=== PATIENT | male | born 1975 ===

== ENCOUNTER 2019-10-31 16:20 | Emergency (ER) | payer OTHER ==
[~2019-10-31] VITALS: Ht 175.3 cm; Wt 102.0 kg
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
--- NOTE | 2019-10-31 17:58 | NUR ---
PT AMBULATED TO BATHROOM WITH DR. SHELTON.
[2019-10-31] MEDS ORDERED: HYDROcodone/APAP 5/325 TABLET ONE (18:09)
[2019-10-31] MEDS ORDERED: HYDROcodone/APAP 5/325 TABLET PO ONE (18:30)
--- NOTE | 2019-10-31 18:44 | NUR ---
PT OK FOR D/C PER ERMD. PT AMBULATING WELL UPON D/C.
[2019-10-31 18:45] VITALS: BP 139/87
--- NOTE | 2019-10-31 18:56 | NUR ---
REPORT FROM GABRIEL COON. PT CARE RESPONSIBILITIES ASSUMED.
== END 2019-10-31 19:06 | disposition home or self-care (01) ==
LOC: ED 18:57
DX: S16.1XXA Strain of muscle, fascia and tendon at neck level, initial encounter (principal); M54.14 Radiculopathy, thoracic region; R20.2 Paresthesia of skin; X58.XXXA Exposure to other specified factors, initial encounter; Y93.89 Activity, other specified; Y92.89 Other specified places as the place of occurrence of the external cause; Y99.8 Other external cause status
CPT/HCPCS: 72050; 72072; 99284

== ENCOUNTER 2019-11-20 03:23 | Emergency (ER) | payer MEDICAID, OTHER ==
[~2019-11-20] VITALS: Ht 175.3 cm; Wt 104.0 kg
[2019-11-20 03:28] VITALS: BP 152/117
[2019-11-20] MEDS ORDERED: MORPHINE SULFATE 4 MG/ML, 1ML IVPush PRN (03:30)
[2019-11-20] MEDS ORDERED: ONDANSETRON 2MG/ML, 2ML IVPush ONE (03:30)
[2019-11-20] MEDS ORDERED: SODIUM CHLORIDE FLUSH 10ML SYR IVF ONE (03:30)
[2019-11-20] MEDS ORDERED: MORPHINE SULFATE 4 MG/ML, 1ML ONE (03:41)
[2019-11-20] MEDS ORDERED: ONDANSETRON 2MG/ML, 2ML ONE (03:41)
[2019-11-20 03:55] LABS: BASOPHILS # (AUTO) 0.06 x10^3/uL (0-0.1); BASOPHILS % (AUTO) 1 % (0-1); EOSINOPHILS # (AUTO) 0.19 x10^3/uL (0-0.4); EOSINOPHILS % (AUTO) 3 % (1-7); LYMPHOCYTES # (AUTO) 3.22 x10^3/uL (1-3.4); LYMPHOCYTES % (AUTO) 43 % (22-44); MD NO; MEAN CORPUSCULAR HEMOGLOBIN 32.3 pg (27.5-34.5); MEAN CORPUSCULAR HGB CONC 33.6 g/dL (33.2-36.2); MEAN CORPUSCULAR VOLUME 95.8 fL (81-97); MEAN PLATELET VOLUME 7.9 fL (7.4-10.4); MONOCYTES # (AUTO) 0.51 x10^3/uL (0.2-0.8); MONOCYTES % (AUTO) 7 % (2-9); NEUTROPHILS # (AUTO) 3.53 x10^3/uL (1.8-6.8); NEUTROPHILS % (AUTO) 47 % (42-75); PLATELET COUNT 124 x10^3/uL (130-400); RED BLOOD COUNT 4.83 x10^6/uL (4.38-5.82); RED CELL DISTRIBUTION WIDTH 14.5 % (9.4-14.8)
[2019-11-20 04:05] LABS: ALANINE AMINOTRANSFERASE 103 U/L (12-78); ALBUMIN 3.7 g/dL (3.4-5.0); ANION GAP 8 mmol/L (5-15); CALCIUM 8.2 mg/dL (8.5-10.1); CHLORIDE 112 mmol/L (98-107); CREATININE 0.88 mg/dL (0.7-1.3)
[2019-11-20 04:09] LABS: ALKALINE PHOSPHATASE 84 U/L (45-117); TOTAL PROTEIN 7.7 g/dL (6.4-8.2); TROPONIN I < 0.015 ng/mL (0.000-0.045)
[2019-11-20 04:15] LABS: AMPHETAMINE SCREEN, URINE Negative (Negative); BARBITURATE SCREEN, URINE Negative (Negative); BENZODIAZEPINE SCREEN, URINE Negative (Negative); CANNABINOID SCREEN, URINE Negative (Negative); COCAINE SCREEN, URINE Negative (Negative); METHADONE SCREEN, URINE Negative (Negative); OPIATE SCREEN, URINE Negative (Negative)
== END 2019-11-20 05:29 | disposition home or self-care (01) ==
LOC: ED 03:53
DX: R42 Dizziness and giddiness (principal); F10.229 Alcohol dependence with intoxication, unspecified; R94.5 Abnormal results of liver function studies; R51 Headache; R53.1 Weakness; Y90.9 Presence of alcohol in blood, level not specified
CPT/HCPCS: 36415; 70450; 80053; 80307; 82140; 84484; 85025; 93005; 96374; 99285; J2270

== ENCOUNTER 2019-12-27 07:44 | Emergency (ER) | payer MEDICAID ==
[~2019-12-27] VITALS: Ht 175.3 cm; Wt 105.2 kg
--- NOTE | 2019-12-27 07:51 | NUR ---
PARTITION NOTCHER: C-COLLAR PLACED
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
--- NOTE | 2019-12-27 08:54 | NUR ---
BEDSIDE REPORT GIVEN TO FAUSTINA RIOS.
[2019-12-27 10:06] VITALS: BP 137/77
[2019-12-27 10:48] LABS: ALANINE AMINOTRANSFERASE 82 U/L (12-78); ALBUMIN 3.7 g/dL (3.4-5.0); ANION GAP 8 mmol/L (5-15); CALCIUM 8.3 mg/dL (8.5-10.1); CHLORIDE 111 mmol/L (98-107); CREATININE 0.66 mg/dL (0.7-1.3)
[2019-12-27 10:50] LABS: ALKALINE PHOSPHATASE 75 U/L (45-117); BILIRUBIN,TOTAL 1.1 mg/dL (0.2-1.0); TOTAL PROTEIN 7.7 g/dL (6.4-8.2)
[2019-12-27 11:08] LABS: BASOPHILS # (AUTO) 0.03 x10^3/uL (0-0.1); BASOPHILS % (AUTO) 1 % (0-1); EOSINOPHILS # (AUTO) 0.08 x10^3/uL (0-0.4); EOSINOPHILS % (AUTO) 2 % (1-7); LYMPHOCYTES # (AUTO) 2.26 x10^3/uL (1-3.4); LYMPHOCYTES % (AUTO) 45 % (22-44); MD SCAN; MEAN CORPUSCULAR HGB CONC 33.3 g/dL (33.2-36.2); MEAN CORPUSCULAR VOLUME 96.2 fL (81-97); MEAN PLATELET VOLUME 7.2 fL (7.4-10.4); MONOCYTES # (AUTO) 0.47 x10^3/uL (0.2-0.8); MONOCYTES % (AUTO) 9 % (2-9); NEUTROPHILS # (AUTO) 2.23 x10^3/uL (1.8-6.8); NEUTROPHILS % (AUTO) 44 % (42-75); PLATELET COUNT 85 x10^3/uL (130-400); RED CELL DISTRIBUTION WIDTH 15.2 % (9.4-14.8)
[2019-12-27 11:21] LABS: MICROSCOPIC NOT IND
== END 2019-12-27 12:04 | disposition home or self-care (01) ==
LOC: ED 08:54
DX: S16.1XXA Strain of muscle, fascia and tendon at neck level, initial encounter (principal); S39.012A Strain of muscle, fascia and tendon of lower back, initial encounter; S20.212A Contusion of left front wall of thorax, initial encounter; S80.211A Abrasion, right knee, initial encounter; S80.811A Abrasion, right lower leg, initial encounter; I10 Essential (primary) hypertension; V29.9XXA Motorcycle rider (driver) (passenger) injured in unspecified traffic accident, initial encounter; Y93.89 Activity, other specified; Y92.488 Other paved roadways as the place of occurrence of the external cause; Y99.8 Other external cause status
CPT/HCPCS: 29505; 36415; 70450; 72110; 72125; 80053; 81003; 85025; 93005; 99285

== ENCOUNTER 2020-02-15 09:55 | Day surgery (SDC) | payer MEDICAID ==
[~2020-02-15] VITALS: Ht 175.3 cm; Wt 108.1 kg
[~2020-02-15 09:55] MED LIST: LIDOCAINE/PF 1%-EPI 1:200K, 30 ML ONE; ROPIvacaine/PF 0.5%, 30 ML ONE
[2020-02-15] MEDS ORDERED: CHLORHEXIDINE 15 ML UDC MM STA (10:17)
[2020-02-15] MEDS ORDERED: thiamine (10:24)
[2020-02-15] MEDS ORDERED: hydroxyzine (10:24)
[2020-02-15] MEDS ORDERED: escitalopram (10:24)
[2020-02-15] MEDS ORDERED: lisinopril (10:24)
[2020-02-15] MEDS ORDERED: LACTATED RINGERS 1,000 ML IV ONE (10:27)
[2020-02-15 10:42] VITALS: BP 160/90
[2020-02-15] MEDS ORDERED: MIDAZOLAM 1 MG/ML, 2ML ONE (10:54)
[2020-02-15] MEDS ORDERED: FENTANYL PF 100 MCG/2ML ONE ×2 (10:54→12:35)
[2020-02-15 10:59] LABS: ALBUMIN 3.7 g/dL (3.4-5.0); ANION GAP 8 mmol/L (5-15); CALCIUM 8.8 mg/dL (8.5-10.1); CHLORIDE 115 mmol/L (98-107)
[2020-02-15] MEDS ORDERED: hydrALAzine 20 MG/ML, 1ML IV PRN (11:00)
[2020-02-15] MEDS ORDERED: MEPERIDINE/PF 25MG/0.5ML IVPush PRN (11:00)
[2020-02-15] MEDS ORDERED: FENTANYL PF 100 MCG/2ML IV PRN (11:00)
[2020-02-15] MEDS ORDERED: HYDROmorphone 1 MG/ML, 1ML INJ IVPush PRN (11:00)
[2020-02-15] MEDS ORDERED: PROMETHAZINE 25 MG/ML, 1ML IVPush PRN (11:00)
[2020-02-15] MEDS ORDERED: LORazepam 2 MG/ML, 1ML IVPush PRN (11:00)
[2020-02-15] MEDS ORDERED: ACETAMINOPHEN 325 MG TABLET PO PRN (11:00)
[2020-02-15 11:03] LABS: ALANINE AMINOTRANSFERASE 125 U/L (12-78); ALKALINE PHOSPHATASE 97 U/L (45-117); CREATININE 0.65 mg/dL (0.7-1.3); TOTAL PROTEIN 7.5 g/dL (6.4-8.2)
[2020-02-15] MEDS ORDERED: KETOROLAC 30 MG/1 ML ONE (11:35)
[2020-02-15] MEDS ORDERED: CEFAZOLIN 1,000 MG ONE (11:36)
[2020-02-15] MEDS ORDERED: ONDANSETRON 2MG/ML, 2ML ONE (11:36)
[2020-02-15] MEDS ORDERED: DEXAMETHASONE 4 MG/ML, 1ML ONE (11:36)
[2020-02-15] MEDS ORDERED: LIDOCAINE-MPF 2% ,5ML ONE (11:36)
[2020-02-15] MEDS ORDERED: PROPOFOL 10 MG/ML, 20ML ONE (11:36)
[2020-02-15] MEDS ORDERED: LABETALOL 5MG/ML, 20ML ONE (12:32)
[2020-02-15] MEDS: LABETALOL 5MG/ML, 20ML IV PRN ×2 (12:33→12:57)
[2020-02-15] MEDS ORDERED: ACETAMINOPHEN 650 MG/20.3 ML UDC ONE (12:34)
[2020-02-15] MEDS ORDERED: OXYcodone 5 MG/5 ML ORAL.SOL UDC ONE (12:35)
[2020-02-15] MEDS: OXYcodone 5 MG/5 ML ORAL.SOL UDC PO PRN ×2 (12:42→14:07)
== END 2020-02-15 14:40 | disposition home or self-care (01) ==
LOC: OUT 09:55
PROVIDERS: ATTEND Orthopaedic Surgery
DX: S83.241A Other tear of medial meniscus, current injury, right knee, initial encounter (principal); M22.41 Chondromalacia patellae, right knee; Z20.828 Contact with and (suspected) exposure to other viral communicable diseases; I10 Essential (primary) hypertension; D64.9 Anemia, unspecified; M19.90 Unspecified osteoarthritis, unspecified site; E66.9 Obesity, unspecified; F17.200 Nicotine dependence, unspecified, uncomplicated; Z79.899 Other long term (current) drug therapy; Z82.3 Family history of stroke; X58.XXXA Exposure to other specified factors, initial encounter; Y93.89 Activity, other specified; Y92.89 Other specified places as the place of occurrence of the external cause; Y99.8 Other external cause status
CPT/HCPCS: 29881; 36415; 80053; 87635; J0690; J1100; J1885; J2250; J2405; J2704; J2795; J3010; J7120

== ENCOUNTER 2020-06-02 06:48 | Inpatient (IN) | payer MEDICAID ==
[2020-06-02] VITALS (9 sets, daily range): BP systolic 114–165; BP diastolic 52–94
[~2020-06-02] VITALS: Ht 175.3 cm; Wt 99.5 kg
[~2020-06-02 06:48] MED LIST changes: -LIDOCAINE/PF 1%-EPI 1:200K, 30 ML ONE; -ROPIvacaine/PF 0.5%, 30 ML ONE; +escitalopram; +hydroxyzine; +lisinopril; +thiamine
--- NOTE | 2020-06-02 07:04 | NUR ---
PROVIDER AT BEDSIDE FOR ASSESSMENT AND TO DISCUSS PLAN OF CARE
--- NOTE | 2020-06-02 07:05 | NUR ---
PT COMES IN TODAY C/O SHAKINESS, N/V, SOB W/EXCERTION, GENERALIZED WEAKNESS, "RUNNY NOSE" . PT STATES HX OF HTN, ETOH. STATES LAST DRINK WAS APPROX. 2100 LAST NIGHT 1-24OZ BEER. MONITORS CONNECTED. WARM BLANKETS PROVIDED. PT SON AT BEDSIDE.
[2020-06-02] MEDS ORDERED: ONDANSETRON 2MG/ML, 2ML ONE (07:12)
[2020-06-02] MEDS ORDERED: LORazepam 2 MG/ML, 1ML ONE ×12 (07:13→11:24)
[2020-06-02] MEDS ORDERED: ONDANSETRON 2MG/ML, 2ML IVPush ONE (07:30)
[2020-06-02] MEDS ORDERED: LORazepam 2 MG/ML, 1ML IVPush ONE ×12 (07:30→11:30)
[2020-06-02] MEDS ORDERED: SODIUM CHLORIDE 0.9% 1,000ML IVBOLUS ONE (07:30)
--- NOTE | 2020-06-02 07:45 | NUR ---
PT RESTING ON [facility]. IV ACCESS OBTAINED. ORDERERD MEDICATIONS ADMINISTERED AND INFUSING. FSBS 143. LABS COLLECTED. NAD. CALL LIGHT W/IN REACH. WILL CONTINUE TO MONITOR
[2020-06-02 07:49] LABS: ALANINE AMINOTRANSFERASE 89 U/L (12-78); ALBUMIN 3.6 g/dL (3.4-5.0); ANION GAP 11 mmol/L (5-15); CALCIUM 8.5 mg/dL (8.5-10.1); CHLORIDE 106 mmol/L (98-107); CREATININE 0.83 mg/dL (0.7-1.3)
[2020-06-02 07:50] LABS: BASOPHILS % (AUTO) 1 % (0-1); EOSINOPHILS % (AUTO) 1 % (1-7); LYMPHOCYTES % (AUTO) 15 % (22-44); MEAN CORPUSCULAR HEMOGLOBIN 29.2 pg (27.5-34.5); MEAN CORPUSCULAR HGB CONC 32.8 g/dL (33.2-36.2); MEAN PLATELET VOLUME 7.7 fL (7.4-10.4); MONOCYTES % (AUTO) 11 % (2-9); NEUTROPHILS % (AUTO) 71 % (42-75); PLATELET COUNT 78 x10^3/uL (130-400); RED BLOOD COUNT 4.23 x10^6/uL (4.38-5.82); RED CELL DISTRIBUTION WIDTH 16.3 % (9.4-14.8)
[2020-06-02 07:58] LABS: MD NO
[2020-06-02 07:59] LABS: ALKALINE PHOSPHATASE 162 U/L (45-117); BILIRUBIN,TOTAL 2.8 mg/dL (0.2-1.0); FREE T4 (FREE THYROXINE) 1.34 ng/dL (0.76-1.46); TOTAL PROTEIN 8.1 g/dL (6.4-8.2)
--- NOTE | 2020-06-02 08:09 | NUR ---
PT RESTING ON GURNEY. TEMORS CONTINUE. ORDERED MEDICATION ADMINISTERED. WILL CONTINUE TO MONITOR
[2020-06-02 08:10] LABS: MICROSCOPIC INDICATED
[2020-06-02] MEDS ORDERED: MAGNESIUM SULFATE 1 GM, THIAMINE 100 MG, FOLIC ACID 1 MG in SODIUM CHLORIDE 0.9% 1,000 ML IV ONE (08:30)
--- NOTE | 2020-06-02 09:48 | NUR ---
PT RESTLESS, EXPERIENCING VISUAL HALLUCINATIONS, AND DIAPHORETIC. MD AWARE. ATIVAN ADMINISTERED PER MD ORDER. CIWA SCORE 30. PT EDUCATED TO REMAIN IN BED. CALL LIGHT W/IN REACH.
--- NOTE | 2020-06-02 09:49 | NUR ---
PROVIDER MADE AWARE OF CIWA SCORE OF 30. PER MD, PT TO REMAIN IN ED UNTIL STABILIZED.
--- NOTE | 2020-06-02 10:08 | NUR ---
PT RESTLESS, AGITATED, REMOVING MONITORS. CONTINUES TO EXPERIENCE SEVERE AUDITORY AND VISUAL HALLUCINATIONS. MD AT BEDSIDE. CIWA SCORE 27.
--- NOTE | 2020-06-02 10:21 | NUR ---
PSA AT BEDSIDE. PROVIDER AT BEDSIDE FOR ASSESSMENT.
[2020-06-02] MEDS: LORazepam 2 MG/ML, 1ML IV PRN ×2 (10:27→10:37)
[2020-06-02] MEDS ORDERED: LORazepam 2 MG/ML, 1ML IVPush PRN (10:30)
[2020-06-02] MEDS ORDERED: LORazepam 0.5MG TABLET PO PRN (10:30)
[2020-06-02] MEDS ORDERED: POTASSIUM CHLORIDE 20 MEQ, MVI ADULT 10 ML, FOLIC ACID 1 MG, MAGNESIUM SULFATE 2 GM in ... IV SCH (10:30)
[2020-06-02] MEDS ORDERED: LORazepam 2 MG/ML, 1ML IV PRN ×4 (10:30)
[2020-06-02] MEDS ORDERED: ONDANSETRON ODT 4 MG PO PRN (10:30)
[2020-06-02] MEDS ORDERED: LABETALOL 5MG/ML, 20ML IVPush PRN (10:30)
[2020-06-02] MEDS ORDERED: METOCLOPRAMIDE 5 MG/ML, 2ML IVPush PRN (10:30)
[2020-06-02] MEDS ORDERED: GABAPENTIN 300 MG CAPSULE PO PRN (10:30)
[2020-06-02] MEDS ORDERED: LORazepam 1MG TABLET PO PRN ×4 (10:30)
[2020-06-02] MEDS ORDERED: ONDANSETRON 2MG/ML, 2ML IVPush PRN (10:30)
--- NOTE | 2020-06-02 10:54 | NUR ---
MD AT BEDSIDE. PT THRASHING, RESTLESS, DIAPHORETIC W/CONTINUED VISUAL AND AUDITORY HALLUCINATIONS. CIWA SCORE 47. 4-POINT SOFT RESTRAINTS PLACED. SEIZURE PADS PLACED. MONITORS CONNECTED. PSA AT BEDSIDE
[2020-06-02] MEDS ORDERED: PHENOBARBITAL SODIUM 710 MG in SODIUM CHLORIDE 0.9% 50 ML IVPB ONE (11:00)
[2020-06-02] MEDS ORDERED: ACETAMINOPHEN 650 MG SUPP PR PRN (11:00)
[2020-06-02] MEDS ORDERED: DEXMEDETOMIDINE 200 MCG in SODIUM CHLORIDE 0.9% 48 ML IV PRN (11:00)
[2020-06-02] MEDS ORDERED: ENOXAPARIN 40 MG/0.4 ML SQ SCH (11:00)
[2020-06-02] MEDS ORDERED: ENALAPRILAT 1.25 MG/ML, 2ML IVPush PRN (11:30)
[2020-06-02] MEDS ORDERED: DOCUSATE 100 MG CAPSULE PO PRN (11:30)
[2020-06-02] MEDS ORDERED: MAGNESIUM SULFATE PMX 4GM/100M 100 ML IVPB ONE (11:30)
[2020-06-02] MEDS ORDERED: POLYETHYLENE GLYCOL 17 GM PACKET PO PRN (11:30)
[2020-06-02] MEDS ORDERED: MIDAZOLAM 1 MG/ML, 2ML ONE (11:43)
--- NOTE | 2020-06-02 11:44 | NUR ---
PT CALM AND SLEEPING ON GURNEY. MD AT BEDSIDE FOR ASSESSMENT
[2020-06-02] MEDS ORDERED: MIDAZOLAM 1 MG/ML, 5ML IVPush ONE (12:00)
--- NOTE | 2020-06-02 12:06 | NUR ---
BREAK RN NOTE: REPORT TAKEN AT BEDSIDE FROM GABRIEL TRACEY FOR MEAL BREAK. PT HAS GONE FROM BEING COMBATIVE TO SOMNOLENT, AROUSEABLE TO PAINFUL STIMULI. RESTRAINTS DISCONTINUED. ALL MONITORS IN PLACE INCLUDING END TIDAL CO2 MONITOR, WHICH IS READING 34-36. RESPS EVEN AND UNLABORED, RATE 14. SPOW 95% ON 4L/MIN OXYGEN VIA NC. VSS. SEIZURE PRECAUTIONS IN PLACE. SITTER AT BEDSIDE FOR SAFETY. RN REMAINS WITH PT. AWAITING CCU BED AND TRANSPORT AT THIS TIME.
--- NOTE | 2020-06-02 12:35 | NUR ---
REPORT GIVEN TO DEREK CCU RN. QUESTIONS ANSWERED. PT'S SON CONTACTED AND PLAN OF CARE/RM NUMBER DISCUSSED. PT CONTINUES TO REST CALMLY ON GURNEY. TRANSPORT MONITORS CONNECTED. SHIRA RIOS AND FLOR CARREON TECH TO TRANSPORT
[2020-06-02] MEDS ORDERED: SODIUM CHLORIDE 0.9% IVPB ONE (13:00)
[2020-06-02] MEDS ORDERED: PHENOBARBITAL SODIUM IVPB ONE (13:00)
[2020-06-02] MEDS ORDERED: POTASSIUM CHLORIDE 20 MEQ, MAGNESIUM SULFATE 2 GM, THIAMINE 200 MG, FOLIC ACID 1 MG in ... IV SCH ×2 (13:30→22:30)
[2020-06-02] MEDS: ENOXAPARIN 40 MG/0.4 ML SQ SCH (13:41)
[2020-06-02] MEDS ORDERED: PHENOBARBITAL SODIUM IV ONE ×2 (17:30→22:30)
[2020-06-02] MEDS ORDERED: SODIUM CHLORIDE 0.9% IV ONE ×2 (17:30→22:30)
[2020-06-02] MEDS: LACTULOSE 10 GM/15 ML UDC PO SCH (20:42)
[2020-06-02] MEDS: FAMOTIDINE 20 MG/2 ML IVPush SCH (20:43)
[2020-06-02] MEDS ORDERED: PHENOBARBITAL ETOH DETOX PER PHARMACY MC PRN (22:30)
[2020-06-03] MEDS ORDERED: PHENOBARBITAL SODIUM 65 MG/ML, 1ML IV SCH (04:30)
[2020-06-03 04:41] LABS: BASOPHILS % (AUTO) 2 % (0-1); EOSINOPHILS % (AUTO) 2 % (1-7); LYMPHOCYTES % (AUTO) 23 % (22-44); MEAN CORPUSCULAR HEMOGLOBIN 29.3 pg (27.5-34.5); MEAN CORPUSCULAR HGB CONC 32.5 g/dL (33.2-36.2); MEAN PLATELET VOLUME 7.8 fL (7.4-10.4); MONOCYTES % (AUTO) 12 % (2-9); NEUTROPHILS % (AUTO) 61 % (42-75); PLATELET COUNT 75 x10^3/uL (130-400); RED BLOOD COUNT 3.83 x10^6/uL (4.38-5.82); RED CELL DISTRIBUTION WIDTH 16.4 % (9.4-14.8)
[2020-06-03 04:44] LABS: ALBUMIN 3.3 g/dL (3.4-5.0); ANION GAP 8 mmol/L (5-15); CALCIUM 7.9 mg/dL (8.5-10.1); CHLORIDE 114 mmol/L (98-107)
[2020-06-03 04:46] LABS: INTERNATIONAL NORMALIZED RATIO 1.22 (0.93-1.1)
[2020-06-03 04:47] LABS: MD NO
[2020-06-03 04:48] LABS: ALANINE AMINOTRANSFERASE 84 U/L (12-78); ALKALINE PHOSPHATASE 138 U/L (45-117); BILIRUBIN,TOTAL 2.9 mg/dL (0.2-1.0); CREATININE 0.65 mg/dL (0.7-1.3); TOTAL PROTEIN 7.4 g/dL (6.4-8.2)
[2020-06-03] MEDS: PHENOBARBITAL SODIUM 65 MG/ML, 1ML IM SCH ×2 (04:54→17:09)
[2020-06-03] MEDS ORDERED: PANTOPRAZOLE 40MG TABLET PO SCH (07:30)
[2020-06-03] MEDS ORDERED: MULTIVITAMINS/MINERALS TABLET PO SCH (09:00)
[2020-06-03] MEDS: FAMOTIDINE 20 MG/2 ML IVPush SCH ×2 (10:23→20:00)
[2020-06-03] MEDS: LACTULOSE 10 GM/15 ML UDC PO SCH ×2 (10:45→20:00)
[2020-06-03] MEDS ORDERED: PHARMACY INSTRUCTION MC PRN (11:00)
[2020-06-03] MEDS: POTASSIUM CHLORIDE 20 MEQ, MAGNESIUM SULFATE 2 GM, THIAMINE 200 MG, FOLIC ACID 1 MG in ... IV SCH (11:20)
[2020-06-03] MEDS: ENOXAPARIN 40 MG/0.4 ML SQ SCH (12:32)
[2020-06-03 18:33] VITALS: BP 170/93
[2020-06-04 02:00] VITALS: BP 159/90
[2020-06-04] MEDS: PHENOBARBITAL SODIUM 65 MG/ML, 1ML IM SCH ×2 (04:30→17:18)
[2020-06-04 05:11] LABS: CHLORIDE 106 mmol/L (98-107)
[2020-06-04 05:20] LABS: ALANINE AMINOTRANSFERASE 76 U/L (12-78); ALKALINE PHOSPHATASE 134 U/L (45-117); ANION GAP 9 mmol/L (5-15); BILIRUBIN,TOTAL 1.8 mg/dL (0.2-1.0); CREATININE 0.62 mg/dL (0.7-1.3); TOTAL PROTEIN 6.8 g/dL (6.4-8.2)
[2020-06-04 07:30] VITALS: BP 152/91
[2020-06-04] MEDS: POTASSIUM CHLORIDE 20 MEQ TAB.ER.PRT PO SCH ×2 (08:49→17:18)
[2020-06-04] MEDS: LACTULOSE 10 GM/15 ML UDC PO SCH ×2 (08:49→19:38)
[2020-06-04] MEDS: FAMOTIDINE 20 MG/2 ML IVPush SCH ×2 (08:49→19:38)
[2020-06-04] MEDS: ACETAMINOPHEN 325 MG TABLET PO PRN (10:15)
[2020-06-04] MEDS: POTASSIUM CHLORIDE 20 MEQ, MAGNESIUM SULFATE 2 GM, THIAMINE 200 MG, FOLIC ACID 1 MG in ... IV SCH (11:51)
[2020-06-04] MEDS: ENOXAPARIN 40 MG/0.4 ML SQ SCH (11:57)
[2020-06-04 12:30] VITALS: BP 143/78
[2020-06-04 19:37] VITALS: BP 155/94
[2020-06-04 20:00] VITALS: BP 177/94
[2020-06-05] MEDS ORDERED: PHARMACY INSTRUCTION MC PRN
[2020-06-05 02:03] VITALS: BP 141/74
[2020-06-05] MEDS ORDERED: PHENOBARBITAL 20 MG/5 ML ORAL SOL PO SCH (04:30)
[2020-06-05 07:10] VITALS: BP 149/84
[2020-06-05] MEDS: FAMOTIDINE 20 MG/2 ML IVPush SCH (08:12)
[2020-06-05] MEDS: LACTULOSE 10 GM/15 ML UDC PO SCH (08:12)
[2020-06-05] MEDS: POTASSIUM CHLORIDE 20 MEQ, MAGNESIUM SULFATE 2 GM, THIAMINE 200 MG, FOLIC ACID 1 MG in ... IV SCH (11:32)
[2020-06-05] MEDS: ACETAMINOPHEN 325 MG TABLET PO PRN (11:37)
[2020-06-05] MEDS ORDERED: FLU VACC QS2020-21(6MOS UP)/PF 60MCG/0.5 ML SYR IM ONE (13:00)
[2020-06-05 13:10] VITALS: BP 154/84
[2020-06-05] MEDS: ENOXAPARIN 40 MG/0.4 ML SQ SCH (13:31)
[2020-06-05] MEDS ORDERED: FAMOTIDINE 20 MG TABLET PO SCH (21:00)
[2020-06-07] MEDS ORDERED: PHARMACY INSTRUCTION MC PRN
[2020-06-07] MEDS ORDERED: PHENOBARBITAL 20 MG/5 ML ORAL SOL PO SCH (04:30)
[2020-06-08] MEDS ORDERED: PHARMACY INSTRUCTION MC PRN
== END 2020-06-05 21:07 | disposition home or self-care (01) | DRG 432 ==
LOC: ED 08:48 → EDIP 09:09 → CCU 12:44 → 5SO 06-03 19:17
PROVIDERS: ADMIT Internal Medicine; ATTEND Hospitalist
DX: K70.10 Alcoholic hepatitis without ascites (principal); G93.41 Metabolic encephalopathy; K85.90 Acute pancreatitis without necrosis or infection, unspecified; E87.2 Acidosis; F10.231 Alcohol dependence with withdrawal delirium; E83.42 Hypomagnesemia; E87.6 Hypokalemia; F32.9 Major depressive disorder, single episode, unspecified; I10 Essential (primary) hypertension; I16.0 Hypertensive urgency; K76.0 Fatty (change of) liver, not elsewhere classified; K80.20 Calculus of gallbladder without cholecystitis without obstruction; N28.1 Cyst of kidney, acquired; D69.59 Other secondary thrombocytopenia; I95.9 Hypotension, unspecified; F10.21 Alcohol dependence, in remission; Z87.828 Personal history of other (healed) physical injury and trauma
CPT/HCPCS: 36415; 71045; 76700; 80053; 80074; 80320; 81001; 82140; 82962; 83690; 83735; 84100; 84439; 84443; 85025; 85610; 87081; 90686; 93005; 96361; 96374; 96375; 96376; 99291; G0378; J1650; J2405; J2560; J3411; J3475; J3480; J7042; G0480; J2060; J7030